=== PATIENT | female | born 1940 | race Hispanic/Latino ===

== ENCOUNTER 2017-01-11 10:13 | Outpatient (CLI) | payer MEDICARE, MEDICAID ==
--- NOTE | 2017-01-11 13:36 | RAD ---
CHEST 2 VIEWS: History Dyspnea. FINDINGS: The cardiac silhouette and pulmonary vasculature are unremarkable. Mediastinum is midline with aort ic calcification. There is no confluent airspace consolidation, pneumothorax, or pleural fluid evid ent. IMPRESSION: Atherosclerosis. POS: [facility]
== END 2017-01-11 10:14 | disposition home or self-care (01) ==
LOC: RAD 10:13
PROVIDERS: ATTEND Internal Medicine
DX: R06.00 Dyspnea, unspecified (principal); I70.90 Unspecified atherosclerosis
CPT/HCPCS: 36415; 71020; 82306; 82728; 85025

== ENCOUNTER 2017-01-23 09:04 | Outpatient (CLI) | payer MEDICARE, MEDICAID | END 2017-01-23 09:05 | disposition home or self-care (01) | LOC: CP 09:04 | PROVIDERS: ATTEND Internal Medicine | DX: R06.09 Other forms of dyspnea (principal) | CPT/HCPCS: 94010; 94727; 94729 ==

== ENCOUNTER 2017-03-11 18:00 | Outpatient (CLI) | payer MEDICARE, MEDICAID | END 2017-03-11 18:01 | disposition home or self-care (01) | LOC: SLEEPLAB 18:00 | PROVIDERS: ATTEND Internal Medicine | DX: G47.33 Obstructive sleep apnea (adult) (pediatric) (principal); R51 Headache; R53.83 Other fatigue; E66.9 Obesity, unspecified; R06.83 Snoring; R35.1 Nocturia; I10 Essential (primary) hypertension | CPT/HCPCS: 95806 ==

== ENCOUNTER 2017-06-12 12:28 | Outpatient (CLI) | payer MEDICARE, MEDICAID ==
--- NOTE | 2017-06-12 14:36 | CT ---
CT LOW DOSE PULMONARY LUNG SCAN: History: Patient smoked for 20 years. No longer a smoker for 15 years. FINDINGS: The lungs are clear of infiltrative process. There is a slightly mosaic pattern with some areas of hy po and hyper attenuation which could be on the basis of air trapping. There are no pulmonary nodules identified. There is motion artifact which degrades detail in the lower lobes. No pleural effusions. I do not appreciate any significant mediastinal adenopathy. Visualized liver parenchyma shows no focal findings. IMPRESSION: Lung RADS category 1F - negative. The S modifier is placed given the mosaic lung pattern which could indicate some underlying obstructive lung disease. POS: [facility]
== END 2017-06-12 12:29 | disposition home or self-care (01) ==
LOC: CT 12:28
PROVIDERS: ATTEND Family Medicine
DX: Z87.891 Personal history of nicotine dependence (principal); Z80.1 Family history of malignant neoplasm of trachea, bronchus and lung
CPT/HCPCS: G0297

== ENCOUNTER 2018-08-20 15:44 | Outpatient (CLI) | payer MEDICARE, MEDICAID ==
--- NOTE | 2018-08-21 07:30 | RAD ---
Exam: 2 views lumbar spine HISTORY: Fall. Acute midline low back pain. FINDINGS: Mild bone mineralization. Multilevel osteophyte formation. Mild to moderate loss of disc sp simón height at L4-L5. Mild loss of disc space height at L1-L2. Vertebral body height is maintained. No fracture. No malalignment. IMPRESSION: Multilevel degenerative disc disease without evidence of fracture. If there is pain or po int tenderness, consider additional evaluation.
== END 2018-08-20 15:45 | disposition home or self-care (01) ==
LOC: BICRAD 15:44
PROVIDERS: ATTEND Family Medicine
DX: M54.5 Low back pain (principal); M51.36 Other intervertebral disc degeneration, lumbar region; W19.XXXA Unspecified fall, initial encounter
CPT/HCPCS: 36415; 72100; 82247; 82306

== ENCOUNTER 2018-11-20 09:04 | Outpatient (CLI) | payer MEDICARE, MEDICAID ==
--- NOTE | 2018-11-20 09:30 | RAD ---
RIGHT SHOULDER THREE VIEWS: Indication: Right shoulder pain. Comparison: None. FINDINGS: There is a migration of the humeral head with subcortical sclerosis involving the greater tuberosity. There is moderate glenohumeral and severe AC joint osteoarthrosis. No acute fracture or subluxation is evident. IMPRESSION: 1. Findings suspicious for chronic rotator cuff insufficiency and moderate rotator cuff osteoarthropa thy. 2. Severe AC joint osteoarthrosis. POS: OFF
== END 2018-11-20 09:05 | disposition home or self-care (01) ==
LOC: BICRAD 09:04
PROVIDERS: ATTEND Family Medicine
DX: M25.511 Pain in right shoulder (principal); M19.011 Primary osteoarthritis, right shoulder

== ENCOUNTER 2019-02-23 15:43 | Outpatient (CLI) | payer MEDICARE, MEDICAID ==
--- NOTE | 2019-02-23 16:04 | RAD ---
3 views left shoulder: 02/23/2019 COMPARISON: None available HISTORY: Shoulder pain, recent fall FINDINGS: There is no widening of the coracoclavicular interspace. There is degenerative change invol ving the right acromioclavicular joint with interspace narrowing and undersurface osteophyte formation. There is elevation of the left humeral head which may signify underlying rotator cuff tear . There is also glenohumeral joint space narrowing with subchondral sclerosis of the left humeral head and glenoid as well as inferior osteophyte formation. No acute fracture or dislocation. IMPRESSION: Degenerative changes as described above. No acute fracture or dislocation.
--- NOTE | 2019-02-23 16:10 | RAD ---
3 views of the left wrist: 02/23/2019 COMPARISON: None HISTORY: Hand pain Wrist pain, fall FINDINGS: There is severe degenerative change involving the first carpometacarpal joint with joint sp simón narrowing, subchondral sclerosis, and osteophyte formation. There is a subtle obliquely oriented lucency involving the base of the fifth metacarpal suspicious fo r a nondisplaced fracture. There is no widening of the scapholunate interval. No evidence for dislocation is seen. IMPRESSION: Possible obliquely oriented nondisplaced fracture at the base of the fifth metacarpal. Cl inical correlation is required. This could be best assessed via CT as clinically warranted.
--- NOTE | 2019-02-23 16:11 | RAD ---
3 views of the left hand: 02/23/2019 COMPARISON: None HISTORY: Fall, trauma, pain FINDINGS: There is a probable nondisplaced obliquely oriented fracture at the base of the fifth metac arpal. Multifocal degenerative change noted including the second through fifth proximal and distal interphalangeal joints as well as the first interphalangeal joint and the first carpometacarpal joint . No evidence for dislocation is. IMPRESSION: Findings suggesting a nondisplaced obliquely oriented fracture at the base of the fifth m etacarpal. Multilevel degenerative change as above.
== END 2019-02-23 15:44 | disposition home or self-care (01) ==
LOC: BICRAD 15:43
PROVIDERS: ATTEND Family Medicine
DX: M25.532 Pain in left wrist (principal); M79.642 Pain in left hand; M25.512 Pain in left shoulder; M19.042 Primary osteoarthritis, left hand; M19.012 Primary osteoarthritis, left shoulder

== ENCOUNTER 2019-05-01 14:02 | Outpatient (CLI) | payer MEDICARE, MEDICAID ==
--- NOTE | 2019-05-01 14:39 | BD ---
EXAM: DEXA bone density examination HISTORY: 79-year-old postmenopausal female for screening COMPARISON: None FINDINGS: Right femoral neck--bone mineral density0.643; T score -1.9 Total proximal right femur--bone mineral density 0.795; T score -1.2 Left femoral neck--bone mineral density0.678; T score -1.5 Total proximal left femur--bone mineral density 0.834; T score -0.9 IMPRESSION: Osteopenia This patient has a 10 year WHO fracture risk of a major osteoporotic fracture of 7.8% and of a hip fracture of 1.9%.
--- NOTE | 2019-05-01 15:40 | CT ---
CT LEFT WRIST WITHOUT CONTRAST: HISTORY: Fractured base of the 5th metacarpal of the hand. COMPARISON: Hand radiograph 02/23/2019. FINDINGS: Intraarticular fracture base of the 5th metacarpal. Moderate degenerative disease of the thumb carpo metacarpal joint. Ossification of the anterior oblique ligament. Mild degenerative disease of the thumb interphalangeal joint. IMPRESSION: Highly comminuted ntraarticular fracture of the 5th metacarpal base with mild foreshortening and medi al subluxation. POS: OFF
--- NOTE | 2019-05-01 16:30 | MMO ---
Bilateral MAMMO Bilat Screen [facility]. CLINICAL HISTORY: Patient is 79 years old and is seen for screening. The patient has no family history of breast cancer. The patient has no personal history of cancer. VIEWS: The views performed were: bilateral craniocaudal with tomosynthesis and bilateral mediolateral oblique with tomosynthesis. FILMS COMPARED: The present examination has been compared to prior imaging studies performed at [facility] on 10/13/2012, and at [facility] on 12/07/2016. This study has been interpreted with the assistance of computer-aided detection. MAMMOGRAM FINDINGS: There are scattered fibroglandular densities. Finding 1: There are vascular calcifications seen in the right breast. Finding 2: There is an intramammary lymph node seen in the left breast. There are no suspicious masses, suspicious calcifications, or new areas of architectural distortion. IMPRESSION: THERE IS NO MAMMOGRAPHIC EVIDENCE OF MALIGNANCY. A ROUTINE FOLLOW-UP MAMMOGRAM IN 1 YEAR IS RECOMMENDED. THE RESULTS OF THIS EXAM WERE SENT TO THE PATIENT. ACR BI-RADS Category 2 - Benign finding MAMMOGRAPHY NOTE: 1. A negative mammogram report should not delay a biopsy if a dominant of clinically suspicious mass is present. 2. Approximately 10% to 15% of breast cancers are not detected by mammography. 3. Adenosis and dense breasts may obscure an underlying neoplasm. Reported by: ROLAND CHAHAL MD Electonically Signed: [id number]
== END 2019-05-01 14:03 | disposition home or self-care (01) ==
LOC: BICCT 14:02
PROVIDERS: ATTEND Orthopaedic Surgery Hand Surgery
DX: Z12.31 Encounter for screening mammogram for malignant neoplasm of breast (principal); S62.317A Displaced fracture of base of fifth metacarpal bone, left hand, initial encounter for closed fracture; M85.851 Other specified disorders of bone density and structure, right thigh; M85.852 Other specified disorders of bone density and structure, left thigh; Z78.0 Asymptomatic menopausal state
CPT/HCPCS: 77063; 77067; 77080